=== PATIENT | male | born 1950 | race Caucasian/White ===

== ENCOUNTER → 2023-02-20 | Outpatient (CLI) | payer MEDICARE, OTHER ==
[~2023-02-20] MED LIST: ACET325 PO; AMLO5 PO; BUSP5 PO; CLOP75 PO; Crestor40 MG; GABA300 PO; LORA1 PO; MELA3 PO; METO50ER PO; Nicoderm Cq1 EAC1 TOP; OLAN5 PO; ONDA4; OXYC5 PO; QUET100 PO; RISP1 PO; SENN187 PO
[2023-02-20 19:38] LABS: BASOPHILS ABSOLUTE AUTO 0.06 K/mm3 (0.00-0.23); BASOPHILS PERCENT AUTO 1 % (0-2); EOSINOPHILS PERCENT AUTO 2 % (0-6); Hematocrit 39.2 % (37.0-53.0); IMMATURE GRAN ABSOLUTE AUTO 0.03 K/mm3 (0.00-0.10); IMMATURE GRAN PERCENT AUTO 0 % (0-1); LYMPHOCYTES ABSOLUTE AUTO 2.84 K/mm3 (0.84-5.20); LYMPHOCYTES PERCENT AUTO 22 % (21-46); MONOCYTES ABSOLUTE AUTO 1.19 K/mm3 (0.16-1.47); MONOCYTES PERCENT AUTO 9 % (4-13); Mean Corpuscular HGB 30.9 pg (26.0-34.0); Mean Corpuscular HGB Conc 33.2 g/dL (31.5-36.5); Mean Corpuscular Volume 93 fL (80-100); Mean Platelet Volume 10.7 fL (9.1-12.4); NEUTROPHILS ABSOLUTE AUTO 8.64 K/mm3 (1.96-9.15); NEUTROPHILS PERCENT AUTO 66 % (41-73); Platelet Count 386 K/mm3 (150-400); RDW Coefficient Variation 14.1 % (11.7-14.2); RDW Standard Deviation 48.3 fL (35.1-46.3); Red Blood Cell Count 4.21 M/mm3 (4.30-5.90); White Blood Cell Count 13.06 K/mm3 (4.00-11.30)
[2023-02-22 09:13] LABS: CALCIUM, SERUM 9.7 mg/dL (8.6-10.2); CREATININE, SERUM 1.08 mg/dL (0.76-1.27); POTASSIUM, SERUM 4.4 mmol/L (3.5-5.2)
== END ==
LOC: LAB 18:30 → LAB SHORT 18:30
PROVIDERS: Psychiatry & Neurology Psychiatry
DX: E51.2 Wernicke's encephalopathy (principal)
CPT/HCPCS: 80048; 85025

== ENCOUNTER 2023-02-22 10:56 | Emergency (ER) | payer OTHER ==
[~2023-02-22] VITALS: Ht 175.3 cm; Wt 72.6 kg
[2023-02-22] MEDS ORDERED: AMLO5 PO (11:26)
[2023-02-22] MEDS ORDERED: CLOP75 PO (11:26)
[2023-02-22] MEDS ORDERED: GABA300 PO (11:26)
[2023-02-22] MEDS ORDERED: BUSP5 PO (11:26)
[2023-02-22] MEDS ORDERED: QUET100 PO (11:27)
[2023-02-22] MEDS ORDERED: MELA3 PO (11:27)
[2023-02-22] MEDS ORDERED: METO50ER PO (11:27)
[2023-02-22] MEDS ORDERED: Nicoderm Cq1 EAC1 TOP (11:27)
[2023-02-22] MEDS ORDERED: RISP1 PO (11:28)
[2023-02-22] MEDS ORDERED: SENN187 PO (11:28)
[2023-02-22] MEDS ORDERED: Crestor40 MG (11:28)
[2023-02-22] MEDS ORDERED: ACET325 PO (11:29)
[2023-02-22] MEDS ORDERED: LORA1 PO (11:29)
[2023-02-22] MEDS ORDERED: OXYC5 PO (11:30)
[2023-02-22] MEDS ORDERED: ONDA4 (11:30)
[2023-02-22] MEDS ORDERED: OLAN5 PO (11:30)
[2023-02-22 11:38] LABS: BASOPHILS ABSOLUTE AUTO 0.06 K/mm3 (0.00-0.23); BASOPHILS PERCENT AUTO 0 % (0-2); EOSINOPHILS ABSOLUTE AUTO 0.27 K/mm3 (0.00-0.68); EOSINOPHILS PERCENT AUTO 2 % (0-6); Hematocrit 39.9 % (37.0-53.0); Hemoglobin 13.2 g/dL (13.5-17.5); IMMATURE GRAN ABSOLUTE AUTO 0.07 K/mm3 (0.00-0.10); IMMATURE GRAN PERCENT AUTO 0 % (0-1); LYMPHOCYTES ABSOLUTE AUTO 2.71 K/mm3 (0.84-5.20); LYMPHOCYTES PERCENT AUTO 15 % (21-46); MONOCYTES ABSOLUTE AUTO 1.94 K/mm3 (0.16-1.47); MONOCYTES PERCENT AUTO 11 % (4-13); Mean Corpuscular HGB 30.8 pg (26.0-34.0); Mean Corpuscular HGB Conc 33.1 g/dL (31.5-36.5); Mean Corpuscular Volume 93 fL (80-100); Mean Platelet Volume 10.3 fL (9.1-12.4); NEUTROPHILS ABSOLUTE AUTO 12.98 K/mm3 (1.96-9.15); NEUTROPHILS PERCENT AUTO 72 % (41-73); Platelet Count 398 K/mm3 (150-400); RDW Coefficient Variation 14.1 % (11.7-14.2); RDW Standard Deviation 47.9 fL (35.1-46.3); Red Blood Cell Count 4.29 M/mm3 (4.30-5.90); White Blood Cell Count 18.03 K/mm3 (4.00-11.30)
[2023-02-22 12:17] LABS: Influenza A, PCR NEGATIVE (NEGATIVE); Influenza B, PCR NEGATIVE (NEGATIVE); Resp Syncytial Virus, PCR NEGATIVE (NEGATIVE); SARS-Cov-2 (COVID-19) PCR, MMC NEGATIVE (NEGATIVE)
[2023-02-22 12:19] LABS: Albumin, Blood 3.6 g/dL (3.4-5.0); Albumin/Globulin Ratio 0.8 (0.8-1.8); Bilirubin, Total 0.6 mg/dL (0.1-1.0); Bun/Creatinine Ratio 12.9 (12.0-20.0); Calcium, Blood 9.4 mg/dL (8.5-10.1); Creatinine, Blood 1.01 mg/dL (0.60-1.20); Globulin, Blood 4.4 g/dL (2.2-4.0); Potassium, Blood 4.1 mmol/L (3.5-5.5)
[2023-02-22 12:59] LABS: Source, Urine Clean Catch
[2023-02-22 13:01] LABS: Appearance, Urine Clear (Clear); Bilirubin, Urine Neg (Neg); Blood, Urine Neg (Neg); Color, Urine Yellow (P-Yellow); Glucose Qualitative, Urine Neg (Neg); Ketones, Urine Neg (Neg); Leukocyte Esterase, Urine Neg (Neg); Nitrite, Urine Neg (Neg); Protein, Urine 1+ (Neg); Urobilinogen, Urine NORM (Normal)
[2023-02-22 18:33] VITALS: BP 149/108
== END 2023-02-22 18:35 | disposition home or self-care (01) ==
LOC: ER 10:56
PROVIDERS: Student in an Organized Health Care Education/Training Program
DX: D72.829 Elevated white blood cell count, unspecified (principal); F01.511 Vascular dementia, unspecified severity, with agitation; Z88.6 Allergy status to analgesic agent; Z79.02 Long term (current) use of antithrombotics/antiplatelets; Z79.1 Long term (current) use of non-steroidal anti-inflammatories (NSAID); Z79.899 Other long term (current) drug therapy; Z86.73 Personal history of transient ischemic attack (TIA), and cerebral infarction without residual deficits; I10 Essential (primary) hypertension
CPT/HCPCS: 0241U; 36415; 70450; 80053; 83605; 85025; 99285-25; A9270

== ENCOUNTER → 2023-03-06 | Outpatient (CLI) | payer MEDICARE, OTHER ==
[~2023-03-06] MED LIST changes: +ALUM-MAG HYDROX30 M1 PO; +Amoxicillin500 MG PO; +BISA10S PR; +Calcium Carbon500 MG PO; -Crestor40 MG; +Crestor40 MG PO; +DIVA125 PO; +DOCUZEN 8.6-501 EACH PO; +DULCOLAX400 MG/5 M PO; +LOPE2C PO; -ONDA4; +ONDA4 PO; +PAROEX473 ML MM; +PRED FORTE5 M1 BOTHEYES; -SENN187 PO; +[UNRECOGNIZED DRUG - OTHER] INH
[2023-03-06 18:34] LABS: BASOPHILS ABSOLUTE AUTO 0.06 K/mm3 (0.00-0.23); BASOPHILS PERCENT AUTO 1 % (0-2); EOSINOPHILS ABSOLUTE AUTO 0.49 K/mm3 (0.00-0.68); EOSINOPHILS PERCENT AUTO 5 % (0-6); Hematocrit 40.4 % (37.0-53.0); Hemoglobin 13.3 g/dL (13.5-17.5); IMMATURE GRAN ABSOLUTE AUTO 0.02 K/mm3 (0.00-0.10); IMMATURE GRAN PERCENT AUTO 0 % (0-1); LYMPHOCYTES ABSOLUTE AUTO 2.63 K/mm3 (0.84-5.20); LYMPHOCYTES PERCENT AUTO 26 % (21-46); MONOCYTES ABSOLUTE AUTO 1.24 K/mm3 (0.16-1.47); MONOCYTES PERCENT AUTO 12 % (4-13); Mean Corpuscular HGB 30.6 pg (26.0-34.0); Mean Corpuscular HGB Conc 32.9 g/dL (31.5-36.5); Mean Corpuscular Volume 93 fL (80-100); Mean Platelet Volume 10.8 fL (9.1-12.4); NEUTROPHILS ABSOLUTE AUTO 5.79 K/mm3 (1.96-9.15); NEUTROPHILS PERCENT AUTO 57 % (41-73); Platelet Count 334 K/mm3 (150-400); RDW Coefficient Variation 13.6 % (11.7-14.2); Red Blood Cell Count 4.35 M/mm3 (4.30-5.90); White Blood Cell Count 10.23 K/mm3 (4.00-11.30)
[2023-03-08 09:10] LABS: A/G RATIO 1.2 (1.2-2.2); BILIRUBIN, TOTAL 0.2 mg/dL (0.0-1.2); CALCIUM, SERUM 10.2 mg/dL (8.6-10.2); CREATININE, SERUM 1.03 mg/dL (0.76-1.27); GLOBULIN, TOTAL 3.4 g/dL (1.5-4.5); POTASSIUM, SERUM 5.1 mmol/L (3.5-5.2); PROTEIN, TOTAL, SERUM 7.4 g/dL (6.0-8.5)
== END | disposition home or self-care (01) ==
LOC: LAB SHORT 17:31 → LAB 17:31
PROVIDERS: Physician Assistant
DX: K05.10 Chronic gingivitis, plaque induced (principal); I10 Essential (primary) hypertension
CPT/HCPCS: 80053; 85025

== ENCOUNTER 2023-03-07 18:29 | Inpatient (IN) | payer MEDICARE, OTHER ==
[~2023-03-07] VITALS: Ht 175.3 cm; Wt 59.1 kg
[~2023-03-07 18:29] MED LIST changes: -ALUM-MAG HYDROX30 M1 PO; -Amoxicillin500 MG PO; -BISA10S PR; -Calcium Carbon500 MG PO; -DIVA125 PO; -DULCOLAX400 MG/5 M PO; -LOPE2C PO; -PAROEX473 ML MM; -PRED FORTE5 M1 BOTHEYES; -[UNRECOGNIZED DRUG - OTHER] INH
[2023-03-07 23:49] LABS: Source, Urine Clean Catch
[2023-03-08 00:09] LABS: Bilirubin, Urine Neg (Neg); Blood, Urine 2+ (Neg); Glucose Qualitative, Urine Neg (Neg); Ketones, Urine Neg (Neg); Leukocyte Esterase, Urine Neg (Neg); Nitrite, Urine Neg (Neg); Protein, Urine 2+ (Neg); Specific Gravity, Urine 1.015 (1.003-1.022); Urobilinogen, Urine 1+ (Normal)
[2023-03-08 00:11] LABS: BASOPHILS ABSOLUTE AUTO 0.08 K/mm3 (0.00-0.23); BASOPHILS PERCENT AUTO 0 % (0-2); EOSINOPHILS ABSOLUTE AUTO 0.14 K/mm3 (0.00-0.68); EOSINOPHILS PERCENT AUTO 1 % (0-6); Hematocrit 41.6 % (37.0-53.0); Hemoglobin 13.9 g/dL (13.5-17.5); IMMATURE GRAN ABSOLUTE AUTO 0.16 K/mm3 (0.00-0.10); IMMATURE GRAN PERCENT AUTO 1 % (0-1); LYMPHOCYTES ABSOLUTE AUTO 2.57 K/mm3 (0.84-5.20); LYMPHOCYTES PERCENT AUTO 9 % (21-46); MONOCYTES ABSOLUTE AUTO 2.18 K/mm3 (0.16-1.47); MONOCYTES PERCENT AUTO 8 % (4-13); Mean Corpuscular HGB Conc 33.4 g/dL (31.5-36.5); Mean Corpuscular Volume 93 fL (80-100); Mean Platelet Volume 10.5 fL (9.1-12.4); NEUTROPHILS ABSOLUTE AUTO 23.33 K/mm3 (1.96-9.15); NEUTROPHILS PERCENT AUTO 82 % (41-73); Platelet Count 316 K/mm3 (150-400); RDW Coefficient Variation 13.6 % (11.7-14.2); RDW Standard Deviation 46.5 fL (35.1-46.3); Red Blood Cell Count 4.49 M/mm3 (4.30-5.90); White Blood Cell Count 28.46 K/mm3 (4.00-11.30)
[2023-03-08 00:46] LABS: Influenza A, PCR NEGATIVE (NEGATIVE); Influenza B, PCR NEGATIVE (NEGATIVE); Resp Syncytial Virus, PCR NEGATIVE (NEGATIVE); SARS-Cov-2 (COVID-19) PCR, MMC NEGATIVE (NEGATIVE)
[2023-03-08 01:10] LABS: Appearance, Urine Clear (Clear); Color, Urine Yellow (P-Yellow)
[2023-03-08 01:11] LABS: Bacteria Few /hpf; Red Blood Cells, Urine 0-2 /hpf (0-2); Squamous Epithelial Cells Rare /hpf (Few); White Blood Cells, Urine 0-2 /hpf (0-5)
[2023-03-08 01:23] LABS: Albumin, Blood 3.6 g/dL (3.4-5.0); Albumin/Globulin Ratio 0.8 (0.8-1.8); Bilirubin, Total 0.4 mg/dL (0.1-1.0); Bun/Creatinine Ratio 13.6 (12.0-20.0); Calcium, Blood 9.5 mg/dL (8.5-10.1); Creatinine, Blood 1.03 mg/dL (0.60-1.20); Globulin, Blood 4.5 g/dL (2.2-4.0); Potassium, Blood 4.8 mmol/L (3.5-5.5); Total Protein, Blood 8.1 g/dL (6.4-8.2)
[2023-03-08 08:03] LABS: BASOPHILS ABSOLUTE AUTO 0.06 K/mm3 (0.00-0.23); BASOPHILS PERCENT AUTO 0 % (0-2); EOSINOPHILS ABSOLUTE AUTO 0.15 K/mm3 (0.00-0.68); EOSINOPHILS PERCENT AUTO 1 % (0-6); Hemoglobin 13.6 g/dL (13.5-17.5); IMMATURE GRAN ABSOLUTE AUTO 0.12 K/mm3 (0.00-0.10); IMMATURE GRAN PERCENT AUTO 1 % (0-1); LYMPHOCYTES ABSOLUTE AUTO 2.14 K/mm3 (0.84-5.20); LYMPHOCYTES PERCENT AUTO 9 % (21-46); MONOCYTES ABSOLUTE AUTO 1.85 K/mm3 (0.16-1.47); MONOCYTES PERCENT AUTO 8 % (4-13); Mean Corpuscular HGB 30.6 pg (26.0-34.0); Mean Corpuscular HGB Conc 33.2 g/dL (31.5-36.5); Mean Corpuscular Volume 92 fL (80-100); Mean Platelet Volume 10.7 fL (9.1-12.4); NEUTROPHILS ABSOLUTE AUTO 19.52 K/mm3 (1.96-9.15); NEUTROPHILS PERCENT AUTO 82 % (41-73); Platelet Count 307 K/mm3 (150-400); RDW Coefficient Variation 13.8 % (11.7-14.2); RDW Standard Deviation 46.9 fL (35.1-46.3); Red Blood Cell Count 4.44 M/mm3 (4.30-5.90); White Blood Cell Count 23.84 K/mm3 (4.00-11.30)
[2023-03-08 08:39] LABS: Albumin, Blood 3.2 g/dL (3.4-5.0); Albumin/Globulin Ratio 0.7 (0.8-1.8); Bilirubin, Total 0.5 mg/dL (0.1-1.0); Bun/Creatinine Ratio 11.5 (12.0-20.0); Creatinine, Blood 1.04 mg/dL (0.60-1.20); Globulin, Blood 4.3 g/dL (2.2-4.0); Potassium, Blood 4.5 mmol/L (3.5-5.5); Total Protein, Blood 7.5 g/dL (6.4-8.2)
[2023-03-08 12:47] LABS: International Normalized Ratio 1.12; Prothrombin Time Results 11.7 Sec (9.7-11.5)
--- NOTE | 2023-03-08 18:48 | NUR ---
ADMISSION: REPORT RECEIVED FROM ED RN. PT TO UNIT AT ABOUT 1540. UPON ASSESSMENT PT IS ORIENTED TO SELF ONLY AND VERY CONFUSED AND AGITATED. PT ALLOWED FOR HEAD TO TOE ASSESSMENT BUT DID NOT FOLLOW COMMANDS WELL AND REFUSED TELE LEADS AND TAKING VS. PT RESTLESS AND ATTEMPTING OOB. SAYING " GET OUT OF MY HOUSE, I WANT TO SLEEP" ANGRY AND THREW TELE BOX ON FLOOR. PT TOOK PRN SEROQUEL WITH APPLESAUCE AFTER MUCH CONVINCING. AND IV ANTIVAN ORDERED. 0.5 MG GIVEN 1ST WITHOUT MUCH CHANGE IN PT AGITATION. PT ABLE TO SLEEP SOME AFTER AN ADDITIONAL 0.5 MG IV DOSE. 1:1 SITTER AT BEDSIDE SINCE PT ADMITTED AND PT ROOM CLOSE TO NURSES STATION. BED ALARM SET, WILL CTM.
--- NOTE | 2023-03-08 18:57 | NUR ---
SUMMARY: PT MORE CALM TONIGHT. 1:1 SITTER CONTINUES AT BEDSIDE. IV ANTIBIOTICS INFUSED. THIS RN CALLED RN AT PT'S HOME AT [facility] AND PT'S HOME MED LIST FAXED. SEE LIST IN PAPER CHART. MED REC UPDATED.
[2023-03-08 20:09] VITALS: BP 152/86
[2023-03-09 04:42] VITALS: BP 127/74
[2023-03-09 04:49] LABS: BASOPHILS ABSOLUTE AUTO 0.08 K/mm3 (0.00-0.23); BASOPHILS PERCENT AUTO 1 % (0-2); EOSINOPHILS ABSOLUTE AUTO 0.49 K/mm3 (0.00-0.68); EOSINOPHILS PERCENT AUTO 4 % (0-6); Hematocrit 36.8 % (37.0-53.0); Hemoglobin 12.3 g/dL (13.5-17.5); IMMATURE GRAN ABSOLUTE AUTO 0.04 K/mm3 (0.00-0.10); IMMATURE GRAN PERCENT AUTO 0 % (0-1); LYMPHOCYTES ABSOLUTE AUTO 2.34 K/mm3 (0.84-5.20); LYMPHOCYTES PERCENT AUTO 18 % (21-46); MONOCYTES ABSOLUTE AUTO 2.04 K/mm3 (0.16-1.47); MONOCYTES PERCENT AUTO 16 % (4-13); Mean Corpuscular HGB 30.9 pg (26.0-34.0); Mean Corpuscular HGB Conc 33.4 g/dL (31.5-36.5); Mean Corpuscular Volume 93 fL (80-100); Mean Platelet Volume 10.7 fL (9.1-12.4); NEUTROPHILS ABSOLUTE AUTO 8.17 K/mm3 (1.96-9.15); NEUTROPHILS PERCENT AUTO 62 % (41-73); Platelet Count 267 K/mm3 (150-400); RDW Coefficient Variation 13.8 % (11.7-14.2); RDW Standard Deviation 46.7 fL (35.1-46.3); Red Blood Cell Count 3.98 M/mm3 (4.30-5.90); White Blood Cell Count 13.16 K/mm3 (4.00-11.30)
[2023-03-09 05:21] LABS: Albumin, Blood 2.9 g/dL (3.4-5.0); Albumin/Globulin Ratio 0.7 (0.8-1.8); Bilirubin, Total 0.4 mg/dL (0.1-1.0); Bun/Creatinine Ratio 12.1 (12.0-20.0); Creatinine, Blood 1.07 mg/dL (0.60-1.20); Total Protein, Blood 6.9 g/dL (6.4-8.2)
--- NOTE | 2023-03-09 06:07 | NUR ---
END OF SHIFT NOTE: PT RESTING WELL T/O SHIFT. HE TOOK ORAL MEDS WITH APPLESAUCE. HE IS A/OX2, DENIES CHEST PAIN AND SOB. ORAL INTAKE HAS BEEN SOFT FOODS DUE TO TOOTH DECAY. R FA IV PATENT WITHOUT REDNESS, SWELLING, OR PAIN. HOME MED REC UPDATED. NOTIFIED AND MED LIST UPDATED TO REFLECT HOME MED DOSAGES. PT RESTING WITH EVEN UNLABORDED RESPIRATIONS CALL LIGHT IN REACH, 1:1 SITTER IN ROOM
[2023-03-09 07:31] VITALS: BP 120/70
--- NOTE | 2023-03-09 08:51 | NUR ---
SHIFT ASSESSMENT PT ALERT TO SELF AND , UNSURE OF WHERE HE IS. ASKING THIS NURSE FOR COFFEE, DECAF PROVIDED. PT CALM AND COOPERATIVE, C/O BEING TIRED. ATTENDS IN PLACE, C/D. VSS. AFTER ASSESSMENT PT QUICKLY BACK TO SLEEP. 1:1 SITTER AT BEDSIDE.
[2023-03-09 15:41] VITALS: BP 125/71
--- NOTE | 2023-03-09 18:23 | NUR ---
SUMMARY PT REMAINS ALERT TO PERSON, FOLLOWING SIMPLE COMMANDS, GUTIÉRREZ. HAVING BOUTS OF AGITATION BUT QUICKLY REDIRECTABLE WITH DECAF COFFEE AND SNACKS. PT SLEPT ON/OFF T/O THE DAY. VSS.
[2023-03-09 20:29] VITALS: BP 137/81
[2023-03-09 22:25] LABS: Vancomycin, Trough 21.4 ug/mL (5.0-10.0)
[2023-03-10 03:53] VITALS: BP 120/65
[2023-03-10 04:19] LABS: BASOPHILS ABSOLUTE AUTO 0.07 K/mm3 (0.00-0.23); BASOPHILS PERCENT AUTO 1 % (0-2); EOSINOPHILS PERCENT AUTO 4 % (0-6); Hematocrit 35.7 % (37.0-53.0); Hemoglobin 11.8 g/dL (13.5-17.5); IMMATURE GRAN ABSOLUTE AUTO 0.04 K/mm3 (0.00-0.10); IMMATURE GRAN PERCENT AUTO 0 % (0-1); LYMPHOCYTES ABSOLUTE AUTO 2.19 K/mm3 (0.84-5.20); LYMPHOCYTES PERCENT AUTO 15 % (21-46); MONOCYTES ABSOLUTE AUTO 2.13 K/mm3 (0.16-1.47); MONOCYTES PERCENT AUTO 15 % (4-13); Mean Corpuscular HGB 30.8 pg (26.0-34.0); Mean Corpuscular HGB Conc 33.1 g/dL (31.5-36.5); Mean Corpuscular Volume 93 fL (80-100); Mean Platelet Volume 11.4 fL (9.1-12.4); NEUTROPHILS ABSOLUTE AUTO 9.17 K/mm3 (1.96-9.15); NEUTROPHILS PERCENT AUTO 65 % (41-73); Platelet Count 263 K/mm3 (150-400); RDW Coefficient Variation 13.7 % (11.7-14.2); RDW Standard Deviation 46.9 fL (35.1-46.3); Red Blood Cell Count 3.83 M/mm3 (4.30-5.90)
[2023-03-10 04:49] LABS: Calcium, Blood 8.8 mg/dL (8.5-10.1); Creatinine, Blood 1.93 mg/dL (0.60-1.20); Potassium, Blood 3.9 mmol/L (3.5-5.5)
--- NOTE | 2023-03-10 06:09 | NUR ---
END OF SHIFT NOTE: PT A/OX1 TO SELF. NO ACUTE CHANGES-SEE PREVIOUS NOTES. R FA IV DC'ED. NEW IV PLACED ON R UPPER ARM. PT TAKES MEDS WHOLE WITH PUDDING. CBGS HAVE BEEN STABLE. PT RESTFUL MOST OF SHIFT CLAMING "I JUST WANT TO SLEEP." CALL LIGHT IN REACH, BED ALARM ON, AND DOOR OPEN TO MONITOR PATIENT.
[2023-03-10 07:18] VITALS: BP 134/67
[2023-03-10 15:06] VITALS: BP 143/80
--- NOTE | 2023-03-10 16:47 | NUR ---
SHIFT SUMMARY PT REMAINS ORIENTED TO SELF THIS SHIFT, BUT COOPERATIVE WITH CARE. VS STABLE. PT COMPLAINED OF LOW BACK PAIN THIS SHIFT AND MEDICATED PER EMAR NEEDED. PT UP TO CHAIR MULTIPLE TIMES THIS SHIFT WITH 1 ASSIST AND FWW. PT REPORTS POOR APPETITE. TWO LARGE, CONTINENT BM THIS SHIFT. WILL CONTINUE TO MONTIOR AND REPORT TO ONCOMING RN
[2023-03-10 19:46] VITALS: BP 142/76
[2023-03-10 22:01] VITALS: BP 157/83
--- NOTE | 2023-03-10 23:13 | NUR ---
TRANSFER NOTE: PT WAS TRANSFERRED TO RM 350 @ 2150. WAS ADMITTED FOR ACUTE ENCEPHALOPATHY. IS A DNR. WAS REPORTED BY PCU NURSE THAT HE WAS ALERT TO SELF BUT ABLE TO MAKE NEEDS KNOWN. HE IS BLIND. MIXED CONT BUT MOSTLY CONT AND WILL STAND AT BEDSIDE TO USE THE URINAL. DEPENDING ON ACTIVITY IS 1-2P. HX OF DEMENTIA WITH AGITATION AND AGGRESSION WITH SOUND TRIGGER. WILL BE TRANSFER WITH A LITTLE RADIO ROCK MUSIC HELPS CALM HIM DOWN WELL DECAF COFFEE WITH SUGAR. IV TO RIGHT BICEP. FOOD SB6-THIN AND MEDS WHOLE WITH PUDDING. ON DROPLET ISO FOR MENINGITIS
[2023-03-11 05:01] VITALS: BP 128/75
--- NOTE | 2023-03-11 05:09 | NUR ---
SHIFT SUMMARY: PT IS ADMITTED FOR ACUTE ENCEPHALOPATHY AND IS A DNR. IS ALERT AND ABLE TO MAKE SOME NEEDS KNOWN. IS ALERT TO SELF. ADLs HAVE BEEN 1P THROUGHOUT SHIFT. IS ON DROPLET ISO FOR MENINGITIS. WAS GIVEN APAP X1. SPILLED COFFEE ON CHEST RESULTING IN MINOR BURN. MD AND CHARGE NURSE NOTIFIED. STATED JUST MONITOR. ZYPREXA WAS GIVEN PRN X1 DUE TO INCREASED BEHAVIORS FOR AN EXTENDED PERIOD OF TIME AFTER BEING MOVED TO HIS ROOM FROM PCU. HE WAS AGITATED AND FIXATED ON BEING KICKED OUT ON THE STREET DO TO THE ROOM CHANGE. HE WAS ALSO FIXATED BEING LET BACK INTO THE HOSPITAL AND SOMEONE OPENING THE DOOR TO LET HIM IN HIS ROOM. HE ALSO MADE NOTE THAT HIS 5 YEAR OLD DOG WAS IN BED WITH HIM BUT DID NOT TAKEN CARE OF.
[2023-03-11 05:10] LABS: BASOPHILS ABSOLUTE AUTO 0.09 K/mm3 (0.00-0.23); BASOPHILS PERCENT AUTO 1 % (0-2); EOSINOPHILS ABSOLUTE AUTO 0.64 K/mm3 (0.00-0.68); EOSINOPHILS PERCENT AUTO 5 % (0-6); Hematocrit 35.4 % (37.0-53.0); Hemoglobin 11.9 g/dL (13.5-17.5); IMMATURE GRAN ABSOLUTE AUTO 0.04 K/mm3 (0.00-0.10); IMMATURE GRAN PERCENT AUTO 0 % (0-1); LYMPHOCYTES ABSOLUTE AUTO 2.61 K/mm3 (0.84-5.20); LYMPHOCYTES PERCENT AUTO 19 % (21-46); MONOCYTES ABSOLUTE AUTO 2.18 K/mm3 (0.16-1.47); MONOCYTES PERCENT AUTO 16 % (4-13); Mean Corpuscular HGB 30.9 pg (26.0-34.0); Mean Corpuscular HGB Conc 33.6 g/dL (31.5-36.5); Mean Corpuscular Volume 92 fL (80-100); Mean Platelet Volume 11.2 fL (9.1-12.4); NEUTROPHILS PERCENT AUTO 60 % (41-73); Platelet Count 265 K/mm3 (150-400); RDW Coefficient Variation 13.7 % (11.7-14.2); RDW Standard Deviation 46.8 fL (35.1-46.3); Red Blood Cell Count 3.85 M/mm3 (4.30-5.90); White Blood Cell Count 14.06 K/mm3 (4.00-11.30)
[2023-03-11 05:37] LABS: Vancomycin, Trough 27.1 ug/mL (5.0-10.0)
[2023-03-11 05:40] LABS: Albumin, Blood 2.5 g/dL (3.4-5.0); Albumin/Globulin Ratio 0.6 (0.8-1.8); Bilirubin, Total 0.4 mg/dL (0.1-1.0); Bun/Creatinine Ratio 8.2 (12.0-20.0); Calcium, Blood 8.3 mg/dL (8.5-10.1); Creatinine, Blood 3.53 mg/dL (0.60-1.20); Globulin, Blood 3.9 g/dL (2.2-4.0); Potassium, Blood 3.9 mmol/L (3.5-5.5); Total Protein, Blood 6.4 g/dL (6.4-8.2)
[2023-03-11 07:18] VITALS: BP 137/75
[2023-03-11 16:28] VITALS: BP 171/100
[2023-03-11] MEDS ORDERED: Amoxicillin500 MG PO (17:00)
[2023-03-11] MEDS ORDERED: ALUM-MAG HYDROX30 M1 PO (17:02)
[2023-03-11] MEDS ORDERED: BISA10S PR (17:04)
[2023-03-11] MEDS ORDERED: Calcium Carbon500 MG PO (17:05)
[2023-03-11] MEDS ORDERED: LOPE2C PO (17:06)
[2023-03-11] MEDS ORDERED: DIVA125 PO (17:07)
[2023-03-11] MEDS ORDERED: DULCOLAX400 MG/5 M PO (17:09)
--- NOTE | 2023-03-11 17:48 | NUR ---
SUMMARY- PT TRIED CLIMBING OUT OF BED AND PULLING OUT IV LATER THIS MORNING MULTIPLE TIMES. CAMERA OBTAINED AND IT HAS HELPED WITH ALERTING STAFF WHEN PT IS TRYING TO CLIMB OOB. AAOX1. BEDREST. PT IS NOT REDIRECTABLE IN ANY WAY. PT HAS HAD MAJOR HALLUCINATIONS THIS SHIFT. PT DENIES ANY PAIN.
[2023-03-11 20:38] VITALS: BP 179/94
[2023-03-11 22:24] VITALS: BP 140/95
[2023-03-11] MEDS ORDERED: PRED FORTE5 M1 BOTHEYES (22:59)
[2023-03-11] MEDS ORDERED: [UNRECOGNIZED DRUG - OTHER] INH (23:00)
[2023-03-11] MEDS ORDERED: PAROEX473 ML MM (23:02)
[2023-03-12 03:04] VITALS: BP 141/91
[2023-03-12 03:16] LABS: Vancomycin, Random 22.6 ug/mL
[2023-03-12 07:19] VITALS: BP 162/88
[2023-03-12 16:12] VITALS: BP 157/86
--- NOTE | 2023-03-12 18:13 | NUR ---
SUMMARY- NO ACUTE EVENTS THIS SHIFT. NO CHANGES WITH PT. AAOX1. BEDREST. THIS RN CONTACTED ADELA AND INQUIRED ABOUT A CONTACT FOR PT. SHAWN INFORMED THIS RN THAT PT HAD ZERO CONTACTS AND THAT HE WAS IN THE PROCESS OF OBTAINING A GUARDIAN WHEN HE CAME TO [facility] FOR TREATMENT.
[2023-03-12 19:19] VITALS: BP 154/102
--- NOTE | 2023-03-12 21:13 | NUR ---
PT WAS SLEEPING AND HIS BRETHING SOUNDED A BIT LABORED, WENT IN TO CHECK PULSE OX AND PULSE, PATIENT WAS SATTING AT 88% PULSE WAS 91. PLACED PT ON 2L AND HE CAME UP TO 94%. PATIENT AWOKE UPON ME PLACE THE NC IN HIS NOSE AND THEN HE WENT BACK TO SLEEP.
[2023-03-13 03:04] VITALS: BP 144/92
[2023-03-13 03:15] LABS: BASOPHILS ABSOLUTE AUTO 0.09 K/mm3 (0.00-0.23); BASOPHILS PERCENT AUTO 1 % (0-2); EOSINOPHILS ABSOLUTE AUTO 0.36 K/mm3 (0.00-0.68); EOSINOPHILS PERCENT AUTO 2 % (0-6); Hematocrit 38.3 % (37.0-53.0); IMMATURE GRAN ABSOLUTE AUTO 0.04 K/mm3 (0.00-0.10); IMMATURE GRAN PERCENT AUTO 0 % (0-1); LYMPHOCYTES PERCENT AUTO 12 % (21-46); MONOCYTES ABSOLUTE AUTO 2.19 K/mm3 (0.16-1.47); MONOCYTES PERCENT AUTO 13 % (4-13); Mean Corpuscular HGB 30.9 pg (26.0-34.0); Mean Corpuscular HGB Conc 33.9 g/dL (31.5-36.5); Mean Corpuscular Volume 91 fL (80-100); Mean Platelet Volume 10.9 fL (9.1-12.4); NEUTROPHILS ABSOLUTE AUTO 11.77 K/mm3 (1.96-9.15); NEUTROPHILS PERCENT AUTO 72 % (41-73); Platelet Count 299 K/mm3 (150-400); RDW Coefficient Variation 14.3 % (11.7-14.2); RDW Standard Deviation 47.3 fL (35.1-46.3); Red Blood Cell Count 4.21 M/mm3 (4.30-5.90); White Blood Cell Count 16.45 K/mm3 (4.00-11.30)
[2023-03-13 03:45] LABS: Albumin, Blood 2.8 g/dL (3.4-5.0); Anion Gap 12 mmol/L (6-16); Blood Urea Nitrogen 25 mg/dL (8-24); Bun/Creatinine Ratio 6.7 (12.0-20.0); CO2, Blood 21 mmol/L (21-32); Chloride, Blood 112 mmol/L (98-108); Creatinine, Blood 3.74 mg/dL (0.60-1.20); Glomerular Filtration Rate 16 (60-); Glucose, Blood 91 mg/dL (70-99); Phosphorus, Blood 4.9 mg/dL (2.5-4.9); Potassium, Blood 3.8 mmol/L (3.5-5.5); Sodium, Blood 145 mmol/L (136-145)
[2023-03-13 03:47] LABS: Vancomycin, Random 18.2 ug/mL
[2023-03-13 07:26] VITALS: BP 151/93
--- NOTE | 2023-03-13 07:28 | NUR ---
SUMMARY PT WAS RESTLESS OVERNIGHT, INCONTINENT OF URINE AND WOULD SOAK THE ATTEND AND PAD UNDERNEATH PATIENT DUE TO INCREASE IN FLUIDS INFUSING. OFFERED URINAL TO PT MORE FREQUENTLY ABOUT EVERY 2 HOURS OR MORE OFTEN. PT IS NOT RETAINING, BLADDER SCAN DONE PRIOR TO VOID WAS 645 AND URINATED 700. PT IS NOT EASILY REDIRECTABLE, IS HAVING VISUAL HALLUCINATIONS. PRN ZYPREXA GIVEN X2. PT SLEPT ABOUT 2-3 HOURS AT BEGINNING OF SHIFT BUT HAS BEEN AWAKE AND RESTLESS MOST OF THE NIGHT.
--- NOTE | 2023-03-13 12:31 | NUR ---
Pt is a 72 year old man with history of vascular dementia, CVA, Warnicke's encephalopathy, HTN, anxiety and osteoarthritis. The patient lives at [facility] in [place], [place] and has no relatives. I attempted to speak with pt today, and his speech was garbled. He was moving his arms and legs in a non-purposeful way. The pt is legally blind. Approximately a month ago at his last hospitalization, he was able to eat, drink and ambulate. This time, the bedside RN states they are trying to feed and give him medications, but he just spits it out, "like he doesn't know what to do with it." He is doing to same with fluids. Pt lives at [facility], and RN states they are willing to take him back on hospice, but there is no relative or friend available to be decision maker. Due to his ongoing decline, respectfully request an ethics consult, as pt would likely be best suited on comfort care, and to return home with hospice. KPS score 30% FAST score 7c
[2023-03-13 15:08] VITALS: BP 102/78
--- NOTE | 2023-03-13 17:23 | NUR ---
SHIFT SUMMARY PATIENT RESTLESS IN BED. REPEATED ATTEMPTS TO CLIMB OUT OF BED. PATIENT CONFUSED AND EASILY AGITATED AT TIMES. PATIENT REDIRECTABLE BUT CONTINUES TO BE CONFUSED, HALLUCINATING AT TIMES. REACHING FOR THINGS NOT THERE AND TALKING TO PEOPLE NOT PRESENT IN THE ROOM. PATIENT UNABLE TO EAT OR DRINK ANYTHING BECAUSE OF CONFUSION AND NOT REMEMBERING TO SWALLOW. ATTEMPTED TO GIVE MEDICATIONS, PATIENT SPITTING THEM BACK OUT. PATIENT MEDICATED WITH IM ZYPREXA BECAUSE OF INCREASED AGITATION AND RESTLESSNESS.
[2023-03-13 19:20] VITALS: BP 165/112
--- NOTE | 2023-03-13 21:10 | NUR ---
PATIENT TRYING TO GET OUT OF BED. REORIENTED PATIENT TO BEING IN THE HOSPITA. PATIENTS STATES "I AM NOT [facility]". REPOSITIONED PATIENT IN BED AND OFFERED URINAL-PATIENT DENIED. LEFT PATIENTS ROOM WITH PATIENT IN A SAFE POSITION WITH BED IN LOWEST POSITION, CALL LIGHT IN REACH, BED EXIT ALARM ENGAGED AND VIRTUAL ROUTE SALESMAN ON. RIGHT AFTER THIS RN EXITED PATIENTS ROOM VIRTUAL ROUTE SALESMAN ALERTED FOR PATIENT GETTING OUT OF BED AND BED ALARM ACTIVATED. RETURNED TO PATIENT TRIED TO REORIENT PATIENT WITH LITTLE SUCCESS. THIS CONTINUED FOR SEVERAL MORE TIMES. BOB DOSS, IN TO ASSIT WITH PATIENT-PATIENT TUCKED INTO BED AND RESTING.
[2023-03-14 03:00] VITALS: BP 134/90
[2023-03-14 05:26] LABS: Albumin, Blood 2.7 g/dL (3.4-5.0); Anion Gap 13 mmol/L (6-16); Blood Urea Nitrogen 19 mg/dL (8-24); CO2, Blood 17 mmol/L (21-32); Calcium, Blood 8.2 mg/dL (8.5-10.1); Chloride, Blood 111 mmol/L (98-108); Glomerular Filtration Rate 33 (60-); Glucose, Blood 64 mg/dL (70-99); Phosphorus, Blood 3.4 mg/dL (2.5-4.9); Potassium, Blood 3.2 mmol/L (3.5-5.5); Sodium, Blood 141 mmol/L (136-145); Vancomycin, Random 19.9 ug/mL
--- NOTE | 2023-03-14 05:38 | NUR ---
SHIFT SUMMARY. PATIENT RESTLESS IN BED EARLY THIS SHIFT, TRYING TO GET OUT OF BED MULTIPLE TIMES-SEE PREVIOUS NOTE. PATIENT RESTING WITH RESPIRATIONS EQUAL AND UNLABORED. VIRTUAL POWERHOUSE ATTENDANT IS ON AND MONITORING PATIENT. BED IS LOCKED IN LOWEST POSITION [facility] CALL LIGHT IN REACH. NO S/S OF DISTRESS NOTED. CARE ONGOING.
[2023-03-14 07:33] VITALS: BP 144/89
--- NOTE | 2023-03-14 08:10 | NUR ---
Ethics consult order discussed with palliative care nurse. 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 According to the clinical reports he is declining on a relatively fast carlito, and given his terminality would be elegible and appropriate for hospice matriculation and disposition back to [facility]. If the attending physician medically confirms and documents the terminal status of the principal, attests to the non-beneficiality and disproportionately of reversing procedures, verifies that the principal is unbefriended i.e. is bereft of a proxy (appointed or otherwise), then per ORS 127.635 (4) (a) life sustaining treatments may be withheld and a hospice election pursued. Prior to making these revisions to the goals of care, the [facility] airline counter agent needs to be properly notified. Thank you for this consult. Reymundo Martel, PhD, EMMANUEL
--- NOTE | 2023-03-14 15:39 | NUR ---
Case Conference: Met with child care development specialist and Dr. Fernandes this morning. Placed ethics consult yesterday, and today the patient is being placed on comfort care per recommendations.
--- NOTE | 2023-03-14 17:00 | NUR ---
PT IS NOW COMFORT CARE. PT IS RESTING WITH EYES CLOSED. HE DID DRINK SOME PEPSI AND AGREED TO TAKE SOME MEDICATIONS AFTER PAIN WAS UNDER CONTROL, TREATED PER EMAR. AT THE BEGINNING OF SHIFT PATIENT WAS AGITATED AND ORIENTED TO NONE. FORGETFUL AND ANXIOUS. CAMERA ON PT. THIS MORNING PT ATTEMPTED TO GET OUT OF BED IN AN UNSAFE MANNOR. HARD TO REDIRECT. DECLINED BREAKFAST AND LUNCH.
--- NOTE | 2023-03-15 00:47 | NUR ---
ASSUMPTION OF CARE: PATIENT IS ORIENTED TO SELF, HOWEVER, IS ABLE TO MAKE NEEDS KNOWN AT TIMES. BREANNE IS REFUSING CARE, CAMERA IN THE ROOM WITH BED ALARM ON. REFUSED NIGHT MEDICATIONS. APPEARS TO BE IN NO SIGN OF ACUTE DISTRESS. PATIENT. RESTING PEACEFULLY AWAKES TO VERBAL STIMULI. PATIENT HAS A TKO FOR IV. PATIENT CHECKED MULTIPLE TIMES.
--- NOTE | 2023-03-15 10:32 | NUR ---
DISCHARGE TO [facility]. IV PULLED INTACT BY RN. HARDEN HERE 1030.
--- NOTE | 2023-03-15 10:40 | NUR ---
CALLED REPORT TO JOHANNA ESCOBAR RN.
== END 2023-03-15 10:16 | disposition hospice, inpatient (51) | DRG 871 ==
LOC: ER 18:29 → MEDS 03-08 05:03 → ERHOLD 03-08 05:03 → PCU 03-08 15:35 → MEDS 03-10 21:46 → ENPENDDIS 03-15 09:00 → MEDS 03-15 10:16
PROVIDERS: Emergency Medicine; Family Medicine; Internal Medicine; ADMIT Student in an Organized Health Care Education/Training Program
PROC: 009U3ZX Drainage of Spinal Canal, Percutaneous Approach, Diagnostic (ICD-10-PCS; principal; 2023-03-08)
PROC: 3E03329 Introduction of Other Anti-infective into Peripheral Vein, Percutaneous Approach (ICD-10-PCS; 2023-03-08)
DX: A41.9 Sepsis, unspecified organism (principal); J18.9 Pneumonia, unspecified organism; R65.21 Severe sepsis with septic shock; R64 Cachexia; N39.0 Urinary tract infection, site not specified; G93.40 Encephalopathy, unspecified; E86.0 Dehydration; E78.5 Hyperlipidemia, unspecified; F17.210 Nicotine dependence, cigarettes, uncomplicated; H54.7 Unspecified visual loss; F41.9 Anxiety disorder, unspecified; F01.C0 Vascular dementia, severe, without behavioral disturbance, psychotic disturbance, mood disturbance, and anxiety; Z51.5 Encounter for palliative care; M19.90 Unspecified osteoarthritis, unspecified site; Z66 Do not resuscitate; Z90.79 Acquired absence of other genital organ(s); Z90.89 Acquired absence of other organs; Z88.8 Allergy status to other drugs, medicaments and biological substances; Z79.899 Other long term (current) drug therapy; Z79.02 Long term (current) use of antithrombotics/antiplatelets; Z79.891 Long term (current) use of opiate analgesic; Z11.52 Encounter for screening for COVID-19; K59.00 Constipation, unspecified; Z68.23 Body mass index [BMI] 23.0-23.9, adult; K05.10 Chronic gingivitis, plaque induced; I10 Essential (primary) hypertension
CPT/HCPCS: 0241U; 36415; 62270; 70450; 71045; 71260; 74177; 80048; 80053; 80069; 80202; 81001; 82570; 82947; 83605; 83735; 84145; 84300; 84540; 85025; 85610; 87040; 96361-59; 96365-59; 96367-59; 96375-59; 96376-59; 99285-25; A9270; J0290; J0456; J0696; J1170; J1644; J1650; J1790; J2060; J2250; J2405; J3370; J7030; J7050; Q9967

== ENCOUNTER 2023-03-20 09:21 | Emergency (ER) | payer MEDICARE, OTHER ==
[~2023-03-20] VITALS: Ht 167.6 cm; Wt 59.0 kg
[~2023-03-20 09:21] MED LIST changes: +ALUM-MAG HYDROX30 M1 PO; +Amoxicillin500 MG PO; +BISA10S PR; +Calcium Carbon500 MG PO; +DIVA125 PO; +DULCOLAX400 MG/5 M PO; +LOPE2C PO; +PAROEX473 ML MM; +PRED FORTE5 M1 BOTHEYES; +[UNRECOGNIZED DRUG - OTHER] INH
[2023-03-20] MEDS ORDERED: MORP30 PO (09:46)
[2023-03-20] MEDS ORDERED: Ativan1 MG PO (09:46)
[2023-03-20 11:27] VITALS: BP 142/65
== END 2023-03-20 11:45 | disposition home or self-care (01) ==
LOC: ER 09:21
DX: R10.9 Unspecified abdominal pain (principal); F03.90 Unspecified dementia, unspecified severity, without behavioral disturbance, psychotic disturbance, mood disturbance, and anxiety; I10 Essential (primary) hypertension; M19.90 Unspecified osteoarthritis, unspecified site; H54.8 Legal blindness, as defined in USA
CPT/HCPCS: 99285